=== PATIENT | female | born 1970 | race Caucasian/White ===

== ENCOUNTER 2018-11-06 08:46 | Emergency (ER) | payer OTHER ==
[~2018-11-06] VITALS: Ht 162.6 cm; Wt 79.8 kg
[~2018-11-06 08:46] MED LIST: ATORVASTATIN CA40 MG PO; CIPRO500 MG PO; FLEXERIL PO; FOLTABS 800 TA1 EACH PO; HYDROCODONE-AP1 EAC6 PO; IBUPROFEN 200200 M1; IBUPROFEN 800800 MG PO; JANUVIA50 MG PO; METFORMIN HCL500 MG PO; METHOTREXATE 22.5 M1 PO; ONDANSETRON HCL4 M2 PO; SULFASALAZINE500 M1 PO; ULTRACET TABLE1 EACH PO; ZANTAC 150MG T150 MG PO
[2018-11-06 09:21] LABS: ABSOLUTE BASOPHILS 0.1 thou/uL (0.0-0.2); ABSOLUTE EOSINOPHILS 0.1 thou/uL (0.0-0.7); ABSOLUTE LYMPHOCYTES 1.8 thou/uL (0.8-5.3); ABSOLUTE MONOCYTES 0.7 thou/uL (0.0-1.2); ABSOLUTE NEUTROPHILS 4.6 thou/uL (1.6-8.1); BASOPHILS 0.8 %; CALCIUM 9.2 mg/dL (8.5-10.1); CREATININE 0.7 mg/dL (0.6-1.3); HEMOGLOBIN 14.3 gm/dL (12.0-15.0); MCH 29.8 pg (26.0-34.0); MCHC 34.2 g/dL (28.0-37.0); MONOCYTES 9.8 %; MPV 8.2 fl. (7.2-11.1); NUCLEATED RBCS 0 /100WBC; PLATELET COUNT* 269 thou/uL (150-400); POLYS 63.4 %; POTASSIUM 3.8 mmol/L (3.5-5.1); RBC 4.82 mil/uL (4.20-5.00); RDW-CV 13.5 % (10.5-14.5); WBC 7.2 thou/uL (4.0-11.0)
[2018-11-06 09:26] LABS: ALBUMIN 3.9 g/dL (3.4-5.0); TOTAL BILIRUBIN 0.7 mg/dL (<0.1-1.0); TOTAL PROTEIN 8.3 g/dL (6.4-8.2)
[2018-11-06] MEDS ORDERED: ZOFRAN ODT4 MG PO (09:43)
[2018-11-06 09:53] VITALS: BP 131/73
== END 2018-11-06 09:54 | disposition home or self-care (01) ==
LOC: M.ERS 08:46
PROVIDERS: Emergency Medicine
DX: E86.0 Dehydration (principal); J45.909 Unspecified asthma, uncomplicated; E11.9 Type 2 diabetes mellitus without complications; K21.9 Gastro-esophageal reflux disease without esophagitis; M06.9 Rheumatoid arthritis, unspecified; Z98.51 Tubal ligation status; Z88.5 Allergy status to narcotic agent